=== PATIENT | male | born 1975 | race Two or more races ===

== ENCOUNTER 2023-06-26 04:37 | Day surgery (SDC) | payer OTHER ==
[2023-06-24 11:29] VITALS: BMI 31.6
[2023-06-26] MEDS ORDERED: LIDOCAINE HCL 1%, 10 MG/ML (20ML VIAL) ONE (10:44)
[2023-06-26] MEDS ORDERED: PROPOFOL 40 ML ONE (10:45)
[2023-06-26] MEDS ORDERED: BUPIVACAINE HCL/PF 0.5% (5MG/ML) 10 ML VIAL ONE (10:45)
[2023-06-26] MEDS ORDERED: KETOROLAC TROMETHAMINE 30 MG/1 ML VIAL ONE (10:45)
[2023-06-26] MEDS ORDERED: MIDAZOLAM HCL 2 MG/2 ML SINGLE DOSE VIAL ONE (10:45)
[2023-06-26] MEDS ORDERED: ONDANSETRON 4 MG/2 ML VIAL ONE (10:45)
[2023-06-26] MEDS ORDERED: FENTANYL CITRATE/PF 50 MCG/ML VIAL ONE ×3 (10:45→12:43)
[2023-06-26] MEDS ORDERED: DEXAMETHASONE SOD PHOSPHATE 4 MG/1 ML VIAL ONE (10:45)
[2023-06-26] MEDS ORDERED: LIDOCAINE HCL/PF 2% SDV 5ML VIAL ONE (10:45)
[2023-06-26] MEDS ORDERED: SEVOFLURANE 250 ML BTL ONE (10:46)
[2023-06-26] MEDS ORDERED: ACETAMINOPHEN INJECTION 100 ML IVPB ONE (10:46)
[2023-06-26] MEDS ORDERED: ceFAZolin SODIUM 1 GM VIAL ONE (10:47)
[2023-06-26] MEDS ORDERED: oxyCODONE HCL 5 MG TABLET PO PRN ×2 (10:52)
[2023-06-26] MEDS ORDERED: ONDANSETRON 4 MG/2 ML VIAL IVPUSH PRN (10:52)
[2023-06-26] MEDS ORDERED: PROMETHAZINE HCL 25 MG/1 ML VIAL IVPB PRN (10:52)
[2023-06-26] MEDS ORDERED: LACTATED RINGERS SOLUTION 1,000 ML IV SCH (11:00)
[2023-06-26] MEDS: ceFAZolin SODIUM 1 GM VIAL IVPB ONE (11:12)
[2023-06-26] MEDS: LIDOCAINE HCL 1%, 10 MG/ML (20ML VIAL) NR ONE (11:27)
[2023-06-26] MEDS: BUPIVACAINE HCL/PF 0.5% (5MG/ML) 10 ML VIAL IJ ONE (12:57)
[2023-06-26 13:26] VITALS: TEMP 97.4
[2023-06-26 14:41] VITALS: BP 109/67; PULSE 65; RESP 20
== END 2023-06-26 15:15 | disposition home or self-care (01) ==
LOC: JASU-SURG 04:37
PROVIDERS: ATTEND Podiatrist Foot Surgery
PROC: 0LQW0ZZ Repair Left Foot Tendon, Open Approach (ICD-10-PCS; principal; 2023-06-26 10:30)
DX: S86.312A Strain of muscle(s) and tendon(s) of peroneal muscle group at lower leg level, left leg, initial encounter (principal); X58.XXXA Exposure to other specified factors, initial encounter; Y93.9 Activity, unspecified; Y92.9 Unspecified place or not applicable; Y99.9 Unspecified external cause status
CPT/HCPCS: 94760; 97116-GP; J0131